=== PATIENT | male | born 1930 | race Caucasian/White ===

== ENCOUNTER → 2018-09-23 | Outpatient (CLI) | payer OTHER | LOC: BMCIMAGING 11:07 | PROVIDERS: ATTEND Family Medicine | DX: M54.5 Low back pain (principal) ==

== ENCOUNTER 2018-09-27 19:28 | Emergency (ER) | payer OTHER ==
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
[2018-09-27 23:39] VITALS: BP 169/91
== END 2018-09-27 23:39 | disposition home or self-care (01) ==
DX: K59.09 Other constipation (principal)